=== PATIENT | male | born 1980 | race Caucasian/White ===

== ENCOUNTER 2017-12-12 13:29 | Emergency (ER) | payer MEDICAID, SELFPAY ==
[2017-12-12 13:30] VITALS: BP 139/77; PULSE 64; RESP 15; TEMP 36.4; O2SAT 98; BMI 27.2
--- NOTE | 2017-12-12 14:06 | CT_ITS ---
STUDY: CT ABDOMEN AND PELVIS WITHOUT CONTRAST REASON FOR EXAM: Male, 37 years old. Painful urination hematuria and history of diverticulitis. RADIATION DOSAGE (If Supplied By Facility): CTDIvol = ( 8.10 ) mGy, DLP = ( 461.63 ) mGycm TECHNIQUE: Transaxial images were obtained from the dome of the diaphragm to the symphysis pubis without oral contrast, and without intravenous contrast. Sagittal and coronal images were reconstructed. Individualized dose optimization techniques were used for this CT. COMPARISON: None. FINDINGS: The visualized lung bases are unremarkable. The visualized portions of the heart are within normal limits. Normal liver. Normal gallbladder and extrahepatic biliary system. There is mild to moderate splenomegaly. The AP diameter of the spleen is 14.6 cm. Normal pancreas. Normal bilateral adrenal glands. Normal right kidney. Normal left kidney. There is a small hiatal hernia. Normal small intestine. There is a thecal fluid appearance of the contents of the colon. The appendix is not seen with certainty. Normal abdominal aorta. Normal inferior vena cava. There multiple small periaortic and mesenteric lymph nodes. There is a lymph node measuring 1.2 cm within the mesentery. This is best appreciated on image such as image 40, coronal view. There is a lymph node measuring 1.5 cm. There is a thickened appearance of the bladder wall alignment for decompression and measures up to 9.4 mm. There are no visualized renal ureteral or bladder calculi. Normal visualized prostate gland. There is a small umbilical hernia containing fat. There is slight anterolisthesis of L5-S1. There is a left lateral disc protrusion at the level of L4-L5 with moderate to severe narrowing of the left neural foramen and moderate central stenosis. There is a broad left lateral disc bulge at L3-L4 with mild to moderate neural foramina narrowing or significant central stenosis. There is a minimal broad disc bulge at L5-S1 without significant neural foraminal narrowing or central stenosis. CT/Abdomen/Pelvis without Cont IMPRESSION: There is a thick-walled appearance of the bladder suspicious for cystitis. Overall there is a fluid fecal appearance of the colon suggesting the patient may have diarrhea or gastroenteritis. In addition there is a pattern of multiple small lymph nodes within the mesentery. Consider mesenteric adenitis. Borderline atypical mesenteric lymph nodes, with an enlarged spleen warrants follow-up, lymphoproliferative disease systemic infection could have this appearance. There is a left-sided paracentral disc protrusion at L4-L5 with moderate to severe left neural foramina narrowing and moderate central stenosis. No evidence of renal ureteral or bladder calculi. Electronically Signed: Dana Brandt MD at 15:02 EDT Tel , Service support ,
[2017-12-12] MEDS: 0.9% Normal Saline 1,000 ML 1000 ML IV (14:27)
[2017-12-12 14:32] LABS: Absolute Lymphocyte Count 1.41 X10^3/ul (0.83-4.51); Absolute Neutrophil Count 10.1 X10^3/uL (2.0-7.7); Basophil# 0.02 X10^3/uL; Basophil% 0.2 % (0-1); Eosinophil# 0.19 X10^3/uL; Eosinophils% 1.5 % (0-5); Hemoglobin 17.1 g/dl (13.0-16.5); Lymphocyte # 1.41 X10^3/ul (4.0); Lymphocyte % 11.5 % (19-41); Mean Corp Hgb Conc 34.2 g/gl (32-36); Mean Corpuscular Hgb 30.5 pg (27.0-32.0); Mean Corpuscular Volume 89.3 fL (80-94); Mean Platelet Vol. 10.9 fl (6.2-12.0); Monocyte# 0.55 X10^3/uL; Monocyte% 4.5 % (0-10); Neutrophil # 10.08 X10^3/uL (2.7-7.7); Neutrophil % 81.8 % (47-70); Platelet Count 197 K/mm3 (150-450); RBC Distribution Width SD 46.1 fl (35.1-43.9); White Blood Count 12.3 K/mm3 (4.4-11.0)
[2017-12-12 14:34] LABS: POSITIVE COUNT NO; POSITIVE DIFFERENTIAL NO; POSITIVE MORPHOLOGY NO
[2017-12-12 14:41] LABS: Anion Gap 6 (5-15); BUN 17 mg/dL (7-18); BUN/Creat Ratio 14.4 RATIO (10-20); Calcium,Total 8.3 mg/dL (8.5-10.1); Chloride 111 mmol/L (98-107); Creatinine, Serum 1.18 mg/dL (0.70-1.30); EST Glomerular Filtration Rate 74 mL/min (>60); Est Glom Filt Rate - Afr Amer 90 mL/min (>60); Estimated Creatinine Clearance 90.22 ml/min; Glucose 74 mg/dL (74-106); Potassium 4.1 mmol/L (3.5-5.1); Sodium Level 141 mmol/L (136-145)
[2017-12-12 14:59] LABS: Squamous Epithelial Cells - UA 0 SEEN /hpf (0-5)
[2017-12-12 15:02] LABS: Color, Urine Yellow (Yellow); Glucose, Dipstick Normal (Normal); Ketone-Dipstick Negative (Negative); Leukocyte Esterase-Dipstick 25 /ul (Negative); Nitrite-Dipstick Negative (Negative); Occult Blood-Urine 50 /ul (Negative); Protein-Dipstick Negative (Negative); Urine Clarity Clear (Clear); Urine Urobilinogen 1 mg/dl (Normal)
[2017-12-12 15:06] LABS: Urine Bilirubin Dipstick 1 mg/dL (Negative)
[2017-12-12 15:17] LABS: Bacteria RARE /hpf (None Seen); Mucous, Urine 1+ /hpf (<or=2+); Red Blood Cells-Urine 0-5 SEEN /hpf (0-5); White Blood Cells 0-5 SEEN /hpf (0-5)
--- NOTE | 2017-12-12 15:55 | ED.DCSUM_ITS ---
- ER Visit Summary Date of Service: 12/12/17 Chief Complaint: Hematuria History of Present Illness: The patient is a 37 M with an episode of blood in his urine. The patient never had this before. Today he had one episode with dysuria and bright red blood in his urine. No clots. No discharge. No lesions. He never had this before. He has been ill recently and has had some diarrhea. No fever or systemic symptoms. No blood in his bowel movements. Denies any other medical history. Does not use blood thinners. No history of cancer. Physical Examination: Vital signs unremarkable. The patient is afebrile. Nontoxic and in no acute distress. Abdomen soft and nontender. Back nontender. No other pertinent findings. Test Results: White count 12.3 and Hemoccult 17.1. Basic metabolic panel unremarkable. Coags normal. Urinalysis unremarkable. There is no sign of infection. CT shows a thickened bladder and signs of gastroenteritis or diarrhea. There are also chronic changes. Please see the report. Emergency Department Course and Treatment: Patient had one episode of gross hematuria. We will send a culture. He has a thickened bladder, and there is concern for infection. Will place him on Keflex. I will refer him to urology. I did advise him that cancer can present with bleeding. There is no sign of stones. He also has diarrhea but no other concerning findings as CT. Stay hydrated. Xkqq-gqw-hebcoad remedies as needed. Follow-up with primary care. Treatment Plan: As above Disposition: Discharged Impression: 1. Hematuria 2. Diarrheal illness This note was generated with [employer] dictation software. It may contain incorrect words, spelling, and punctuation that were not noted in review of the chart prior to signing ED Disposition - Plan for ED Patient: Chief Complaint: Complaint Referrals: Care Physician,No Primary [Primary Care Provider] -
--- NOTE | 2017-12-12 15:55 | ED.DEP ---
ED Disposition - Plan for ED Patient: Chief Complaint: Complaint Instructions: Hematuria: Possible Causes Prescriptions: Cephalexin [Keflex] 500 mg PO Q6 #28 cap Naproxen [Naprosyn] 500 mg PO BID PRN #20 tab Referrals: Bob Alfredo MD [STAFF PHYSICIAN] - Jannie Fraser MD [STAFF PHYSICIAN] - Additional Instructions: Follow-up with Dr. Alfredo for the blood in your urine. Follow-up with Dr. Fraser for general medical needs.
[2017-12-12 16:08] VITALS: BP 132/66; PULSE 74; RESP 15; O2SAT 98
== END 2017-12-12 16:10 | disposition home or self-care (01) ==
PROVIDERS: Emergency Provider Emergency Medicine
DX: R31.0 Gross hematuria (principal); R19.7 Diarrhea, unspecified; Z72.0 Tobacco use
CPT/HCPCS: 74176; 80048; 81001; 85025; 85610; 85730; 87086; 96360; 96361; 99283; J7030; A4216

== ENCOUNTER 2018-02-01 16:40 | Emergency (ER) | payer MEDICAID, SELFPAY ==
[2018-02-01 16:41] VITALS: BP 151/82; PULSE 107; RESP 20; TEMP 36.7; O2SAT 100; BMI 25.5
--- NOTE | 2018-02-01 16:54 | ED.VISSUMM ---
- ER Visit Summary Date of Service: 02/01/18 Chief Complaint: Seizure History of Present Illness: The patient is a 37 M with a history of seizure disorder, out of all of his medications for several months had a full body tonic-clonic seizure this morning that lasted approximately 1 minute. It was witnessed. He did not sustain injury or bite his tongue. He felt well afterwards but when he was at the court house this afternoon for sentencing, he felt very anxious about leaving his child for 20 days of mcc and states that he had a panic attack. He is now feeling back at baseline and has no complaints. Denies depression or suicidal thoughts/ideation. Physical Examination: No signs of head trauma. No evidence of tongue biting. Neck is supple. No meningeal findings. Heart tones are regular without murmur. Lungs are clear bilaterally. Abdomen is soft and nontender. Strong pulses in all extremities. No focal or lateralizing neuro findings. Speech is clear. Thought content is normal. No suicidal thoughts or ideation. Test Results: BMP is normal Emergency Department Course and Treatment: BMP is normal here. He is not in distress. Neurologic exam is completely unremarkable. He has been off of his seizure medication and is out of everything. I refilled his seizure medications for him and at this point it appears that he can safely be discharged home. He will return if worse and follow up closely with his doctor. Treatment Plan: Restart seizure medication Disposition: Home stable condition Impression: Initial encounter recurrent seizure secondary to medication noncompliance This note was generated with [employer] dictation software. It may contain incorrect words, spelling, and punctuation that were not noted in review of the chart prior to signing ED Disposition - Plan for ED Patient: Chief Complaint: Seizure Instructions: ED Seizure Recurrent Prescriptions: Divalproex Sodium [Depakote] 500 mg PO BID #60 tablet. levETIRAcetam tablet [Keppra tablet] 500 mg PO BID 30 Days #60 tablet Referrals: Care Physician,No Primary [Primary Care Provider] -
[2018-02-01] MEDS: 0.9% Normal Saline 1,000 ML 1000 ML IV (17:09)
[2018-02-01 17:43] LABS: Anion Gap 7 (5-15); BUN 8 mg/dL (7-18); BUN/Creat Ratio 6.2 RATIO (10-20); Calcium,Total 8.8 mg/dL (8.5-10.1); Chloride 114 mmol/L (98-107); Creatinine, Serum 1.28 mg/dL (0.70-1.30); EST Glomerular Filtration Rate 68 mL/min (>60); Est Glom Filt Rate - Afr Amer 82 mL/min (>60); Estimated Creatinine Clearance 83.17 ml/min; Glucose 75 mg/dL (74-106); Potassium 3.7 mmol/L (3.5-5.1); Sodium Level 144 mmol/L (136-145)
[2018-02-01 17:58] VITALS: BP 113/68; PULSE 68; RESP 18
== END 2018-02-01 18:20 | disposition home or self-care (01) ==
LOC: ED 17:52
PROVIDERS: Emergency Provider Emergency Medicine
DX: G40.909 Epilepsy, unspecified, not intractable, without status epilepticus (principal); Z91.14 Patient's other noncompliance with medication regimen; Z72.0 Tobacco use
CPT/HCPCS: 80048; 99285; J7030

== ENCOUNTER 2018-03-14 20:13 | Emergency (ER) | payer MEDICAID, SELFPAY ==
[2018-03-14 20:15] VITALS: BP 135/85; PULSE 104; RESP 15; TEMP 37.1; O2SAT 93; BMI 22.7
--- NOTE | 2018-03-14 21:44 | ED.RN ---
PT SITTING UPRIGHT IN BED, A&OX4, COOPERATIVE WITH CARE, STATES I COULD HEAR EVERYTHING WHEN I CAME IN, I JUST DIDN'T RESPOND STATES WHEN I GET ANXIOUS, I JUST FALL OUT. THIS RN GOOGLED SEVERAL PHONE NUMBERS FOR PT, HE IS ATTEMPTING TO SECURE RIDE FOR AFTER DISCHARGE. FOUND CONDOMINIUM MANAGER FOR TABLET, PT ABLE TO LOOK UP CONTACTS NOW.
[2018-03-14 21:50] VITALS: BP 140/98; PULSE 98; RESP 18; O2SAT 99
--- NOTE | 2018-03-14 22:43 | ED.VISSUMM ---
- ER Visit Summary Date of Service: 03/14/18 Chief Complaint: Mental status change History of Present Illness: The patient is a 37 M was about to be arrested and he started shaking. Upon further examination when he stops shaking he told me this is how he normally acts when he has anxiety. Physical Examination: He has a tremor he is does not want to communicate but when inflicting noxious stimuli he stands up and tells me he stopped that. His heart is regular lungs are clear abdomen soft and nontender. Test Results: [] Emergency Department Course and Treatment: Patient was observed he is now alert oriented ?3 and wants to be discharged. Impression: Shaking episode, anxiety This note was generated with [employer] dictation software. It may contain incorrect words, spelling, and punctuation that were not noted in review of the chart prior to signing ED Disposition - Plan for ED Patient: Disposition: Home or Assisted Living Chief Complaint: Overdose Instructions: ED Stress React Referrals: Care Physician,No Primary [Primary Care Provider] -
[2018-03-14 22:51] VITALS: BP 138/74; PULSE 89; RESP 16; O2SAT 98
== END 2018-03-14 22:52 | disposition home or self-care (01) ==
PROVIDERS: Emergency Provider Emergency Medicine
DX: F41.1 Generalized anxiety disorder (principal); F43.0 Acute stress reaction
CPT/HCPCS: 99283; J7030; A4216

== ENCOUNTER 2019-09-18 16:19 | Emergency (ER) | payer SELFPAY ==
[2019-09-18 16:20] VITALS: BP 117/90; PULSE 106; RESP 15; TEMP 36.2; O2SAT 100; BMI 25.1
--- NOTE | 2019-09-18 16:45 | ED.DCSUM_ITS ---
- ER Visit Summary Date of Service: 09/18/19 Chief Complaint: Left upper dental pain History of Present Illness: The patient is a 39 M who presents with left upper dental pain that became worse today. Patient states he was drinking when the pain became severe. Patient describes the pain as throbbing. Patient states pain is over the left upper molars. Patient states the pain is worse with drinking. Patient denies any fevers or chills. Patient denies any shortness of breath or cough. Patient denies any sore throat or rhinorrhea. Patient does not have a dentist or dental appointment scheduled. Physical Examination: Vital signs are stable. Patient is afebrile. Patient is in no acute distress. Oral mucosa is pink and moist. Neck is supple. Trachea is midline. There is no JVD. There are dental caries noted over the left upper second premolar and first molar. There is some mild gingival edema. There is no fluctuance or abscess formation. Heart was regular rate and rhythm. Lungs are clear and equal bilaterally. Cranial nerves II through XII are intact. There are no focal motor or sensory deficits noted. Emergency Department Course and Treatment: Patient was given a prescription for Pen-Vee K. Patient was instructed to continue Tylenol and ibuprofen as needed for pain. Patient was instructed to follow-up with a dentist in 5 to 7 days. Patient understood and was agreeable with the plan. All questions were answered. Disposition: Discharge home Impression: Infected dental caries This note was generated with [employer] dictation software. It may contain incorrect words, spelling, and punctuation that were not noted in review of the chart prior to signing ED Disposition - Plan for ED Patient: Disposition: Home or Assisted Living Diagnosis: Infected dental caries Instructions: Dental Cavity Prescriptions: Penicillin V Potassium 500 mg PO 4X/DAY #40 tab Prescription Printed Referrals: Care Physician,No Primary [Primary Care Provider] - Jazmine Dykes [NON-STAFF] - 5-7 Days
--- NOTE | 2019-09-18 17:17 | ED.RN ---
PT STATES HE IS UNABLE TO PAY FOR SCRIPT. ADVISED CASE MANAGEMENT.
--- NOTE | 2019-09-18 17:20 | CM.ED ---
SOCIAL WORK INFORMANT: NURSEKASIA REASON FOR REFERRAL: ASSISTANCE WITH MEDICATIONS/SELF-PAY MET WITH PATIENT IN ROOM. INTRODUCED ROLE AND REASON FOR REFERRAL. DISCUSSED SCRIPT FOR ANTIBIOTIC. PATIENT STATES I HAVE BEEN SITTING HERE IN PAIN AND YOU GUYS DID NOTHING FOR ME. YOU CAN KEEP YOUR SHIT. PATIENT LEFT SCRIPT AND D/C INSTRUCTIONS AT BEDSIDE AND WALKED OUT OF ROOM. 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
--- NOTE | 2019-09-18 17:24 | ED.RN ---
PT UPSET BECAUSE HE COULD NOT GET PAIN MEDS. PT STATES WE WASTED HIS TIME AND HIS MONEY BY NOT GIVING HIM PAIN MEDS. PT OFFERED SCRIPT FOR ATB AND EDUCATED ABOUT HOW ATB WOULD RELIEVE PAIN, PT REFUSED AND TOLD SW THAT YOU CAN KEEP YOUR SHIT. AMBULATED OUT OF DEPARTMENT WITHOUT DIFFICULTY.
== END 2019-09-18 17:29 | disposition home or self-care (01) ==
PROVIDERS: Emergency Provider Emergency Medicine
DX: K04.7 Periapical abscess without sinus (principal); K02.9 Dental caries, unspecified; Z72.0 Tobacco use
CPT/HCPCS: 99283